=== PATIENT | female | born 1965 | race Caucasian/White ===

== ENCOUNTER 2019-10-16 12:14 | Outpatient (CLI) | payer MEDICAID, SELFPAY ==
--- NOTE | 2019-10-16 12:42 | MM_ITS ---
WS: [id number] BILATERAL DIGITAL SCREENING MAMMOGRAPHY WITH CAD CLINICAL INFORMATION: SCREENING HISTORY: Screening mammogram. No current complaints. COMPARISON: TECHNIQUE: Bilateral CC and MLO views. FINDINGS: Scattered fibroglandular densities bilaterally. Stable bilateral intramammary lymph nodes. Lucent andrew tered calcifications. No suspicious focal mass, asymmetry, calcifications, or architectural distortio n. No evidence of malignancy. MM/[id number] IMPRESSION: BI-RADS: 2-Benign FOLLOW UP: 1 Year Follow-up Recommend return to annual screening mammography.
== END 2019-10-16 12:15 | disposition home or self-care (01) ==
LOC: RADSHAW 12:18
PROVIDERS: Family Provider Registered Nurse; PCP Registered Nurse; Visit Provider Registered Nurse
DX: Z12.31 Encounter for screening mammogram for malignant neoplasm of breast (principal)
CPT/HCPCS: 77067

== ENCOUNTER → 2020-03-11 15:02 | Outpatient (BNVA) | payer MEDICAID, SELFPAY | PROVIDERS: Family Provider Registered Nurse; PCP Registered Nurse; Visit Provider Registered Nurse | DX: I10 Essential (primary) hypertension (principal); E03.9 Hypothyroidism, unspecified; E78.5 Hyperlipidemia, unspecified; M50.00 Cervical disc disorder with myelopathy, unspecified cervical region; J44.9 Chronic obstructive pulmonary disease, unspecified; F32.9 Major depressive disorder, single episode, unspecified; Z79.1 Long term (current) use of non-steroidal anti-inflammatories (NSAID); J30.2 Other seasonal allergic rhinitis | CPT/HCPCS: 80053; 80061; 84443; 85025 ==

== ENCOUNTER → 2021-04-17 13:35 | Outpatient (BNVA) | payer MEDICAID, SELFPAY | PROVIDERS: Family Provider Registered Nurse; PCP Registered Nurse; Visit Provider Registered Nurse | DX: I10 Essential (primary) hypertension (principal); E55.9 Vitamin D deficiency, unspecified; E78.5 Hyperlipidemia, unspecified; E03.9 Hypothyroidism, unspecified; F41.9 Anxiety disorder, unspecified; J44.9 Chronic obstructive pulmonary disease, unspecified; F32.9 Major depressive disorder, single episode, unspecified | CPT/HCPCS: 80053; 80061; 82306; 84443; 85025 ==

== ENCOUNTER → 2022-06-16 14:33 | Outpatient (BNVA) | payer MEDICAID, SELFPAY | PROVIDERS: Family Provider Registered Nurse; PCP Registered Nurse; Visit Provider Registered Nurse | DX: I10 Essential (primary) hypertension (principal); E78.5 Hyperlipidemia, unspecified; E55.9 Vitamin D deficiency, unspecified; F32.9 Major depressive disorder, single episode, unspecified; M50.00 Cervical disc disorder with myelopathy, unspecified cervical region; F41.9 Anxiety disorder, unspecified; J44.9 Chronic obstructive pulmonary disease, unspecified; M62.838 Other muscle spasm; E03.9 Hypothyroidism, unspecified | CPT/HCPCS: 80053; 80061; 82306; 85025 ==

== ENCOUNTER → 2023-07-15 09:58 | Outpatient (BNVA) | payer MEDICAID, SELFPAY | PROVIDERS: Family Provider Registered Nurse; PCP Registered Nurse; Visit Provider Registered Nurse | DX: E55.9 Vitamin D deficiency, unspecified (principal); I10 Essential (primary) hypertension; E78.5 Hyperlipidemia, unspecified; E03.9 Hypothyroidism, unspecified; F41.9 Anxiety disorder, unspecified; J44.9 Chronic obstructive pulmonary disease, unspecified; F32.9 Major depressive disorder, single episode, unspecified; M62.838 Other muscle spasm; E66.01 Morbid (severe) obesity due to excess calories; Z68.42 Body mass index [BMI] 45.0-49.9, adult | CPT/HCPCS: 80053; 80061; 82306; 84443; 85025 ==

== ENCOUNTER → 2024-01-11 09:43 | Outpatient (BNVA) | payer MEDICAID, SELFPAY | PROVIDERS: Family Provider Registered Nurse; PCP Registered Nurse; Visit Provider Registered Nurse | DX: E03.9 Hypothyroidism, unspecified (principal) | CPT/HCPCS: 84439; 84443 ==

== ENCOUNTER → 2024-09-14 08:45 | Outpatient (BNVA) | payer MEDICAID, SELFPAY | PROVIDERS: Family Provider Registered Nurse; PCP Registered Nurse; Visit Provider Registered Nurse | DX: E03.9 Hypothyroidism, unspecified (principal); E55.9 Vitamin D deficiency, unspecified | CPT/HCPCS: 80053; 80061; 82306; 84443; 85025 ==

== ENCOUNTER → 2025-04-18 07:58 | Outpatient (BNVA) | payer MEDICAID, SELFPAY | PROVIDERS: Family Provider Registered Nurse; PCP Registered Nurse; Visit Provider Registered Nurse | DX: E55.9 Vitamin D deficiency, unspecified (principal); E03.9 Hypothyroidism, unspecified | CPT/HCPCS: 82306; 84443; 84481 ==

== ENCOUNTER → 2025-08-15 10:27 | Outpatient (BNVA) | payer MEDICAID, SELFPAY | PROVIDERS: Family Provider Registered Nurse; PCP Registered Nurse; Visit Provider Registered Nurse | DX: E03.9 Hypothyroidism, unspecified (principal) | CPT/HCPCS: 80053; 80061; 84443; 85025 ==